=== PATIENT | female | born 1955 | race Caucasian/White ===

== ENCOUNTER → 2020-06-02 | Outpatient (CLI) | payer OTHER, MEDICARE ==
[~2020-06-02] MED LIST: ALEVE220 M1 PO; AZO STANDARD95 MG PO; B COMPLEX1 EACH PO; CHOLINE CITRAT650 MG PO; COENZYME Q10 PO; DHEA 2525 MG PO; DMAE PO; ELDERBERRY EXTRACT PO; GABA PO; HYDROCODON-ACE1 EAC7 PO; KRILL OIL PO; MELATONIN2.5 MG PO; MIRALAX17 GM PO; MS CONTIN15 MG PO; NAC500 MG PO; NEURONTIN 300M300 M2 PO; NONI JUICE PO; ONE-DAILY MULT1 EAC1 PO; SAME200 MG PO; TURMERIC500 M2 PO; VITAMIN A10000 UNI3 PO; VITAMIN D325 MC3 PO; VITAMIN K100 MCG PO; [UNRECOGNIZED DRUG - OTHER]; [UNRECOGNIZED DRUG - OTHER] PO; [UNRECOGNIZED DRUG - OTHER] PO
[2020-06-02 13:35] LABS: HEMATOCRIT 43.6 % (37.0-47.0); MCH 30.2 pg (26.0-34.0); MCHC 32.2 g/dL (28.0-37.0); MCV 93.8 fL (80.0-100.0); RBC 4.64 mil/uL (4.20-5.00); RDW 13.4 % (10.5-14.5)
[2020-06-02 13:37] LABS: URINE BILIRUBIN NEGATIVE (Negative); URINE BLOOD NEGATIVE (Negative); URINE CLARITY CLEAR; URINE COLOR YELLOW; URINE GLUCOSE-RANDOM* NEGATIVE (Negative); URINE KETONES NEGATIVE (Negative); URINE LEUKOCYTES-REFLEX NEGATIVE (Negative); URINE NITRITE-REFLEX NEGATIVE (Negative); URINE PROTEIN (DIPSTICK) NEGATIVE (Negative); URINE SPECIFIC GRAVITY >= 1.030 (1.005-1.035); URINE UROBILINOGEN 0.2 E.U./dl (0.2-1.0)
[2020-06-02 13:49] LABS: CALCIUM 9.5 mg/dL (8.5-10.1); CREATININE 0.6 mg/dL (0.6-1.0); POTASSIUM 4.3 mmol/L (3.5-5.1); PROTIME 10.3 Seconds (9.3-11.4)
== END ==
LOC: LAB 09:00
PROVIDERS: ATTEND Orthopaedic Surgery
DX: Z01.818 Encounter for other preprocedural examination (principal); M17.12 Unilateral primary osteoarthritis, left knee; Z96.652 Presence of left artificial knee joint

== ENCOUNTER → 2020-06-13 | Outpatient (CLI) | payer OTHER, MEDICARE ==
[~2020-06-13] MED LIST changes: -HYDROCODON-ACE1 EAC7 PO; -MIRALAX17 GM PO; -MS CONTIN15 MG PO; -NEURONTIN 300M300 M2 PO
== END ==
LOC: LAB 08:28
PROVIDERS: ATTEND Orthopaedic Surgery
DX: Z01.812 Encounter for preprocedural laboratory examination (principal); Z20.828 Contact with and (suspected) exposure to other viral communicable diseases

== ENCOUNTER 2020-06-15 10:52 | Observation (INO) | payer OTHER, MEDICARE ==
[2020-06-02 13:35] LABS: HEMATOCRIT 43.6 % (37.0-47.0); MCH 30.2 pg (26.0-34.0); MCHC 32.2 g/dL (28.0-37.0); MCV 93.8 fL (80.0-100.0); RBC 4.64 mil/uL (4.20-5.00); RDW 13.4 % (10.5-14.5)
[2020-06-02 13:37] LABS: URINE BILIRUBIN NEGATIVE (Negative); URINE BLOOD NEGATIVE (Negative); URINE CLARITY CLEAR; URINE COLOR YELLOW; URINE GLUCOSE-RANDOM* NEGATIVE (Negative); URINE KETONES NEGATIVE (Negative); URINE LEUKOCYTES-REFLEX NEGATIVE (Negative); URINE NITRITE-REFLEX NEGATIVE (Negative); URINE PROTEIN (DIPSTICK) NEGATIVE (Negative); URINE SPECIFIC GRAVITY >= 1.030 (1.005-1.035); URINE UROBILINOGEN 0.2 E.U./dl (0.2-1.0)
[2020-06-02 13:49] LABS: CALCIUM 9.5 mg/dL (8.5-10.1); CREATININE 0.6 mg/dL (0.6-1.0); POTASSIUM 4.3 mmol/L (3.5-5.1); PROTIME 10.3 Seconds (9.3-11.4)
[~2020-06-15] VITALS: Ht 177.8 cm; Wt 67.1 kg
[2020-06-15 12:05] VITALS: BP 134/87
[2020-06-15 17:30] VITALS: BP 112/71
--- NOTE | 2020-06-15 18:13 | NUR ---
Pt transferred from recovery room approx 1545. Denies pain. Dressing c/d/i. Polar care in place. IVF infusing. 2L O2. Pt still drowsy. Possibl d/c to home tomorrow if physical therapy clears pt. Family at bedside. Fall precautions in place. Call light within reach. Will continue to monitor.
[2020-06-15 19:45] VITALS: BP 102/63
--- NOTE | 2020-06-16 04:24 | NUR ---
ASSUMED CARE OF PT AT 1900. PT IS A/O X4 AND IS UP WITH ASSISTANCE. PT C/O PAIN TO LEFT KNEE. PRN PAIN MEDICATION GIVEN DIRECTED. AT THIS TIME PT IS LYING IN HER BED AND APPEARS TO BE SLEEPING. POLAR PACK IN PLACE AND RECENTLY REFILLED. ROJELIO DRSG C/D/I. SCD'S AND FALL PRECAUTIONS IN PLACE. WILL CONTINUE TO MONITOR.
[2020-06-16 05:58] LABS: HEMATOCRIT 32.9 % (37.0-47.0); HEMOGLOBIN 10.7 gm/dL (12.0-15.0); MCH 30.7 pg (26.0-34.0); MCHC 32.6 g/dL (28.0-37.0); MCV 94.1 fL (80.0-100.0); RBC 3.5 mil/uL (4.20-5.00); RDW 13.2 % (10.5-14.5); WBC 11.3 thou/uL (4.0-11.0)
[2020-06-16 07:59] VITALS: BP 102/63
[2020-06-16 08:14] VITALS: BP 93/59
[2020-06-16] MEDS ORDERED: HYDROCODON-ACE1 EAC7 PO (10:07)
[2020-06-16] MEDS ORDERED: MS CONTIN15 MG PO (10:07)
[2020-06-16] MEDS ORDERED: NEURONTIN 300M300 M2 PO (10:08)
--- NOTE | 2020-06-16 10:13 | O ---
[facility] [place] [address] OPERATIVE REPORT Name: REBECCA MENENDEZ Room #: 438-P [facility] M.R.#: [id number] Admission: 06/15/20 Attend Phys: Greyson Elias MD Discharge: Date of : 51 Report #: [id number] THIS REPORT FOR: cc: FAM - Family physician unknown FAM - Family physician unknown Greyson Elias MD ~ DATE OF SERVICE: 06/15/2020 PREOPERATIVE DIAGNOSIS: Left knee osteoarthritis. POSTOPERATIVE DIAGNOSIS: Left knee osteoarthritis. PROCEDURE: Left total knee arthroplasty using Navio robotic itinerant teacher assistant. SURGEON: Greyson Elias M.D. TYPESETTER PERFORATOR OPERATOR: Yamile Henderson PA-C. INDICATIONS FOR TYPESETTER PERFORATOR OPERATOR: Throughout the case, extensive retraction and manipulation of the knee was required. This was afforded to me by my itinerant teacher assistant. ANESTHESIA: LMA with adductor canal block. IMPLANTS: Tavares and Nephew size 5 Journey II BCS Oxinium femur, a size 3 tibia, a size 11 polyethylene and size 29 patella. TOURNIQUET TIME: 52 minutes. ESTIMATED BLOOD LOSS: Less than 25 mL. COMPLICATIONS: None. SPECIMENS: None. CONDITION UPON LEAVING THE OPERATING ROOM: Stable. INDICATIONS FOR PROCEDURE: The patient is a 64-year-old female with left knee osteoarthritis. She had failed conservative measures for this and after discussion with her, she elected for left total knee arthroplasty. DESCRIPTION OF PROCEDURE: Risks, benefits, alternatives, complications were discussed in detail with the patient including but not limited to risk of anesthesia, risk of damage to nerves, arteries, blood vessels, risk for infection, bleeding, risk for continued knee pain, need for reoperation. Informed consent was obtained from the patient. Left knee was appropriately [address] [address] OPERATIVE REPORT Name: REBECCA MENENDEZ Room #: 438-P [facility] MKirstenR.#: [id number] Admission: 06/15/20 Attend Phys: Greyson Elias MD Discharge: Date of : 51 Report #: [id number] marked in the preoperative holding area. IV Ancef was given for preoperative antibiotics. She was brought to the operating room and placed in the supine position on operating room table. LMA anesthesia was induced without complication. Tourniquet was placed on the left thigh. Left lower extremity was prepped and draped in normal sterile fashion. Timeout was performed properly identifying the patient and procedure as well as the instrumentation and implants. All in the operating room were in agreement. Standard midline approach to the knee was made with 10 blade through the skin. Dissection was taken down sharply to the fascia and deep flaps were developed medially and laterally. Fresh 10 blade was used to make a medial parapatellar arthrotomy and the knee was inspected. There was severe medial compartment with moderate patellofemoral compartment osteoarthritis. ACL and PCL were removed sharply. Reference pins were placed in the femur and the tibia and the knee was then digitally mapped using the Sayah robotic system. Intraoperative plan was made and we sized the size 5 femur with a size 3 tibia and a 10 spacer. After acceptance of the intraoperative plan, the distal femoral cut was made with a Navio bur. Distal femoral cutting block was pinned in place and chamfer cuts were made. Attention was turned to the tibia. Remainder of the menisci removed with Bovie cautery. Tibial resection guide was pinned in place using the Navio for placement and tibial resection was made. Flexion and extension gaps were then checked and found to have good balance both medially and laterally in flexion and extension. Tibia was sized, found to be a size 3. A size 3 tibial trial was placed, pinned and punched. A size 5 femoral trial was placed and box cut was made. This was then trialed with a size 10 and then a size 11 polyethylene. The size 11 polyethylene demonstrated 1-2 millimeter of laxity medially and laterally throughout range of motion of the knee, both digitally as well as manually. A 9 mm of bone was resected from the posterior surface of the patella and a size 29 patellar trial button was placed. Knee was taken through range of motion, found to be stable, found to have good patellar tracking. Trial components were removed. Bony ends were thoroughly irrigated with normal saline. A final size 3 tibia, size 5 Journey II BCS Oxinium femur and a size 29 patella were cemented in place using standard cementation techniques. While the cement cured, a periarticular injection consisting of morphine, ropivacaine, epinephrine and Toradol was placed around the knee joint capsule. After the cement cured, tourniquet was deflated. Hemostasis was obtained with Bovie cautery. Final size 11 polyethylene was placed. A gram of vancomycin was placed deep in the joint. Fascia was closed with 0 Vicryl, skin was closed with 2-0 Vicryl, 3-0 Monocryl, Dermabond and a ROJELIO dressing was applied. The patient tolerated this procedure well and went to the recovery room under care of anesthesia postoperatively. <ELECTRONICALLY SIGNED> By: Greyson Elias MD 06/16/20 1013 1655 1751 Greyson Elias MD /nt
[2020-06-16 10:19] VITALS: BP 102/63
--- NOTE | 2020-06-16 10:21 | NUR ---
ASSESSMENT: CM REVIEWED CHART AND SPOKE WITH PT. PT IS ALERT AND ORIENTED X4. PT IS S/P LEFT KNEE REPLACEMENT. PT REPORTS LIVING AT HOME WITH HER . SHE REPORTS HER DAUGHTER IS GOING TO BE STAYING WITH HER FOR A FEW DAYS WELL. PT REPORTS SHE IS NORMALLY INDEPENDENT WITH ADLS AND AMBULATION AND IS NEEDING A WALKER FOR HOME. PT REPORTS NO PREFERENCE OF [email or web address]. CM NOTIFIED [employer] AND THEY HAVE DELIVERED A WALKER TO PATIENT. PT REPORTS HAVING OUTPATIENT THERAPY SET UP. PT REPORTS NO FURTHER NEEDS FROM CM. PT WORKED WITH THERAPY AND IS DISCHARGING TODAY.
[2020-06-16 10:56] VITALS: BP 102/63
--- NOTE | 2020-06-16 11:10 | NUR ---
DISCHARGE PAPERS REVIEWED SIGNED AND COPY IN CHART. IV ACSESS DCD. ORTHO FOLDER GIVEN TO PATIENT. PICCO DRESSING IN PLACE. POLAR PACK AND WALKER SENT WITH PATIENT.
[2020-06-16 11:56] VITALS: BP 102/63
== END 2020-06-16 11:57 | disposition home or self-care (01) ==
LOC: OR 10:52 → TBA 10:52 → OR 12:29 → 4S 15:52
PROVIDERS: ADMIT Orthopaedic Surgery; ATTEND Orthopaedic Surgery
DX: M17.12 Unilateral primary osteoarthritis, left knee (principal); Z79.899 Other long term (current) drug therapy
CPT/HCPCS: 27447; S2900; 50010; 50101; 50415; 50954; 51130; 51225; 51320; 53000; 53078; 53365; 54118; 56527; 56528; 57095; 57103; 57110; 57127; 57179; 62110; 62900; 70005

== ENCOUNTER 2020-06-16 23:35 | Inpatient (IN) | payer OTHER, MEDICARE ==
[~2020-06-16] VITALS: Ht 177.8 cm; Wt 67.1 kg
--- NOTE | ~2020-06-16 | EMS ---
[address] [address] EMS Patient Care Report Name: REBECCA MENENDEZ Room #: 442-P ADM IN M.R.#: [id number] Admission: 06/17/20 Attend Phys: Trent Schwartz MD Discharge: Date of : 51 Report #: [id number] THIS REPORT FOR: //name// Report Transmitted: 06/17/2020 06:15 EMS Care Summary [facility] MED-ACT Incident [id number] @ 06/16/2020 22:56 Incident Location [address] [place] [address] Patient REBECCA RANKIN Female, 64 Years 1955 Patient Address [address] [place] [address] Patient History None Reported, Patient Allergies No known allergies, Patient Medications Aspirin, Hydrocodone, Morphine, Cephalexin, Gabapentin, Zofran, Chief Complaint Addominal pain Disposition Transported No Lights/[place] Reason Convulsions/Seizure Transported To [facility] Narrative [id number] arrived on scene to find a female lying on the couch. Pt was alert and oriented. Family stated that pt had an episode where "she passed out, stopped breathing, and sounded like she was trying to throw up." Family stated that the episode lasted approx. 10 sec. Pt complained of abdominal pain that has [address] [address] EMS Patient Care Report Name: REBECCA MENENDEZ Room #: 442-P ADM IN ..#: [id number] Admission: 06/17/20 Attend Phys: Trent Schwartz MD Discharge: Date of : 51 Report #: [id number] increased since she ate dinner that night. Pt had a knee replacement on 06/15 and had not had a bowel movement since 06/14. Pt was using hydrocodone and morphine at home for pain. Pt's abdomen was distended and tender to touch. Pt states that she has had her "stomach pumped" multiple times from similar experiences. Pt was placed on the monitor and glucose obtained. Pt decided it would be best to go to the hospital to be evaluated. Pt was moved to the cot and out to the ambulance. In the ambulance pt was placed on the monitor and a 12 lead obtained. Pt was then transported to the hospital. At the hospital care was transferred to ER staff. Initial Vitals @23:11P: 93,R: 18,SpO2: 96, @23:21P: 95,R: 14,BP: 128/73,SpO2: 96, @23:04P: 93,R: 18,BP: 125/74,Pain: 8/10,GCS: 15,Temp: 98F,Glucose: 159,SpO2: 93,Revised Trauma: 12, @23:29P: 85,R: 18,SpO2: 95, Assessments @23:04MENTAL:Person Oriented,Time Oriented,Place Oriented,Event Oriented,SKIN:HEENT:LUNG SOUNDS:Left Upper: Distension,Right Upper: Distension,Right Lower: Distension,Left Lower: Distension,ABDOMEN:Left Upper: Distension,Right Upper: Distension,Right Lower: Distension,Left Lower: Distension,PELVIS//GI:EXTREMITIES:PULSE:NEURO: Impression Abdominal Pain Procedures @23:04Surgical Mask on PatientResponse: Unchanged@23:06ALS AssessmentResponse: UnchangedSucceeded@23:2812-Lead ECGResponse: UnchangedSucceeded@23:2912-Lead ECGResponse: UnchangedSucceeded Timeline 22:54,Call Received 22:54,Psap Call 22:56,Dispatched 22:58,En Route 23:00,On Scene 23:02,At Patient 23:04,Surgical Mask on Patient,Response: Unchanged 23:04,BP: 125/74 M,PULSE: 93,RR: 18 R,SPO2: 93 Ox,ETCO2: ,B,PAIN: 8,GCS: 15, 23:06,ALS Assessment,Response: UnchangedSucceeded, 23:11,BP: / M,PULSE: 93,RR: 18 R,SPO2: 96 Ox,ETCO2: ,BG: ,PAIN: ,GCS: , 23:19,Depart Scene 23:21,BP: 128/73 M,PULSE: 95,RR: 14 R,SPO2: 96 Ox,ETCO2: ,BG: ,PAIN: ,GCS: , [address] [address] EMS Patient Care Report Name: REBECCA MENENDEZ Room #: 442-P [facility] IN M.R.#: [id number] Admission: 06/17/20 Attend Phys: Trent Schwartz MD Discharge: Date of : 51 Report #: [id number] 23:28,12-Lead ECG,Response: UnchangedSucceeded, 23:29,12-Lead ECG,Response: UnchangedSucceeded, 23:29,BP: / M,PULSE: 85,RR: 18 R,SPO2: 95 Ox,ETCO2: ,BG: ,PAIN: ,GCS: , 23:31,At Destination 23:40,Call Closed Disclaimer v1.1 Copyright 2020 [employer] This EMS Care Summary contains data elements from the applicable legal record (which may be displayed differently). It is designed to provide pertinent information for the following purposes: continuity of care, clinical quality, and state data reporting. The complete legal record is available to ED staff and administrators of the receiving hospital in [facility]'s Patient Tracker. All data is provided "as is."
[~2020-06-16 23:35] MED LIST changes: +HYDROCODON-ACE1 EAC7 PO; +MS CONTIN15 MG PO; +NEURONTIN 300M300 M2 PO
[2020-06-16 23:36] VITALS: BP 118/66
[2020-06-17 00:56] LABS: ABSOLUTE NEUTROPHILS 8.3 thou/uL (1.4-8.2); BASOPHILS 0.2 % (0.0-2.0); EOSINOPHILS 0.1 % (0.0-3.0); HEMATOCRIT 32.1 % (37.0-47.0); HEMOGLOBIN 10.7 gm/dL (12.0-15.0); LYMPHOCYTES 12.7 % (24.0-44.0); MCH 31.1 pg (26.0-34.0); MCHC 33.4 g/dL (28.0-37.0); MCV 93.3 fL (80.0-100.0); MONOCYTES 10.8 % (1.0-8.0); PLATELET COUNT 209 thou/uL (150-400); POLYS 76.2 % (36.0-66.0); RBC 3.45 mil/uL (4.20-5.00); RDW 13.7 % (10.5-14.5); WBC 10.9 thou/uL (4.0-11.0)
[2020-06-17 01:08] LABS: ALBUMIN 3.4 g/dL (3.4-5.0); CALCIUM 9.4 mg/dL (8.5-10.1); CREATININE 0.7 mg/dL (0.6-1.0); TOTAL BILIRUBIN 0.5 mg/dL (0.2-1.0); TOTAL PROTEIN 6.3 g/dL (6.4-8.2)
[2020-06-17 01:09] LABS: POTASSIUM 2.8 mmol/L (3.5-5.1)
[2020-06-17 03:19] VITALS: BP 125/80
[2020-06-17 03:23] VITALS: BP 125/80
[2020-06-17 04:09] VITALS: BP 125/80
[2020-06-17 04:36] VITALS: BP 117/84
--- NOTE | 2020-06-17 05:18 | NUR ---
PT ADMITTED TO THE UNIT AT APPROXIMATELY 0430. PT IS A/O X4 AND IS UP WITH ASSISTANCE X1 TO THE BSC OR WILL USE A BEDPAN DEPENDING ON LEVEL OF PAIN AND COMFORT. PT IS HOOKED UP TO NG TUBE AND LOW INTERMITTENT SUCTION CURRENTLY DRAINING DARK BRWON LIQUID. LEFT KNEE AQUACEL DRSG IS INTACT BUT DRAINING RED DRAINAGE. REINFORCED WITH ABD. PT C/O PAIN AND NAUSEA AT THIS TIME. AWAITING ORDERS. WILL CONTINUE TO MONITOR.
[2020-06-17 07:50] VITALS: BP 127/70
[2020-06-17 09:45] LABS: CALCIUM 8.8 mg/dL (8.5-10.1); CREATININE 0.5 mg/dL (0.6-1.0); MAGNESIUM 2.2 mg/dL (1.8-2.4)
[2020-06-17 09:56] LABS: POTASSIUM 4.3 mmol/L (3.5-5.1)
--- NOTE | 2020-06-17 15:20 | EKG ---
[place] [address] [facility] [place] [address] ELECTROCARDIOGRAM REPORT Name: REBECCA MENENDEZ Room #: 442-P ADM IN M.R.#: [id number] Admission: 06/17/20 Attend Phys: Trent Schwartz MD Discharge: Date of : 51 Report #: [id number] [facility] ED Test Date: 2020-06-17 Test Time: 00:20:57 Pat Name: REBECCA BAUER Department: Room: 442 Gender: F Slip Cover Cutter: LONNIE : 1955 Requested By: Jon Gonzalez Order Number: [id number] MD: Memo Howard Measurements Intervals [place] Rate: 91 P: 63 AR: 182 QRS: 57 QRSD: 68 T: 57 QT: 427 QTc: 526 Interpretive Statements Sinus rhythm Borderline T abnormalities, anterior leads Prolonged QT interval No previous ECG available for comparison Electronically Signed On 06-17-2020 15:19:51 DEMAND PLANNING MANAGER by Memo Howard [email or web address] <ELECTRONICALLY SIGNED> By: Memo Howard MD, [facility] 06/17/20 1519 0020 0020 Memo Howard MD, FACC /EPI
[2020-06-17 16:50] VITALS: BP 131/78
[2020-06-18 00:15] VITALS: BP 124/74
--- NOTE | 2020-06-18 04:02 | NUR ---
ASSUMED PT CARE FROM ROHAN (DAY RN). PT IS A&OX4. PT HAS COMPLAINTS OF PAIN TO HER LEFT LEG AND A HEADACHE. PT STATES THAT HER PAIN IS NOT MANAGEABLE. PT TOLD ME THAT SHE HAS PAIN MEDICATION IN HER BAG AND THAT SHE CAN TAKE THEM IF WE DON'T GET HER SOMETHING "STRONGER". I SPOKE WITH YANET AND SHE ORDERED A ONE TIME DOSE OF 30 MG TORADOL FOR THE HEADACHE. I COUNTED THE NARCOTICS WITH THE PT AND SENT THEM DOWN TO PHARMACY. PT STATES THAT IT IS NOT HELPING HER HEADACHE. I WAS TOLD BY ROHAN IN REPORT THAT THE PT COULD HAVE ICE CHIPS BUT THAT SHE IS NPO. I EXPLAINED TO THE PT THAT NPO IS NOTHING BY MOUTH AND SHE STATED THAT DR. NORRIS IS AWARE AND APPROVES OF HER HAVING THE ICE CHIPS. PT STATES THAT SHE NEEDS A CUP OF ICE CHIPS EVERY 45 MINUTES. PT ALSO LIKE ICE PACKS AROUND HER NECK AND TO REFILL THEM ONCE AN HOUR WELL. PT HAS A DRESSING ON HER LEFT KNEE WHICH IS D/I. AMADEO HOSE AND POLAR PACK IS IN PLACE. WILL CONTINUE TO MONITOR.
[2020-06-18 04:54] LABS: ALBUMIN 2.7 g/dL (3.4-5.0); CALCIUM 8.7 mg/dL (8.5-10.1); CREATININE 0.4 mg/dL (0.6-1.0); MAGNESIUM 1.8 mg/dL (1.8-2.4)
[2020-06-18 08:15] VITALS: BP 124/65
--- NOTE | 2020-06-18 12:18 | NUR ---
PT WORKED WITH THERAPY UP IN BEDSIDE CHAIR. NG TUBE DCD AND CLEAR LIQUID DIET STARTED. TO BRING UP BROTH PATIENT ONLY EATS CERTAIN FOOD.
[2020-06-18 15:52] VITALS: BP 111/69
--- NOTE | 2020-06-18 17:05 | NUR ---
ASSUMED CARE OF PATIENT AT 0645 THIS AM HAS WORKED WITH THERAPY UP IN BEDSIDE CHAIR. NG TUBE DCD AND STARTED ON CLEAR LIQUID DIET PT REQUEST FOR [facility] CALLED AND STATED NO THAT PATIENT DID NOT NEED, HAS BEEN NPO. KCL XS 1 BAG GIVEN FLUIDS ORDERED. KUB ORDERED. PT GIVEN MED FOR MIGRAINE HERE TO BRING FOOD PT FOLLOWS SPECIAL DIET.
--- NOTE | 2020-06-18 19:39 | NUR ---
UA COLLECTED FROM CHAMBERLAIN CATH SPECIMEN TAKEN TO LAB AT THIS TIME WAS ORDERED INER AND WAS NOT COLLECTED STILL SHOWS ACTIVE ORDER
[2020-06-18 19:55] VITALS: BP 118/69
[2020-06-18 20:20] LABS: URINE BILIRUBIN NEGATIVE (Negative); URINE BLOOD 2+ (Negative); URINE CLARITY SL CLOUDY; URINE COLOR YELLOW; URINE GLUCOSE-RANDOM* NEGATIVE (Negative); URINE KETONES 2+ (Negative); URINE LEUKOCYTES-REFLEX TRACE (Negative); URINE NITRITE-REFLEX NEGATIVE (Negative); URINE PROTEIN (DIPSTICK) TRACE (Negative); URINE UROBILINOGEN 0.2 E.U./dl (0.2-1.0)
[2020-06-18 20:35] LABS: AMORPHOUS PHOSPHATES Moderate /LPF (None Seen); BACTERIA-REFLEX None Seen /HPF (None Seen); CASTS None Seen /LPF (None Seen); CRYSTALS None Seen /LPF (None Seen); MUCUS 4-6 Moderate strn/LPF (None Seen); SQUAMOUS None Seen /LPF (0-3); TRANSITIONAL EPITHEL CELL 0-3 Few /LPF (None Seen); URINE RBC 3-10 Few /HPF (0-2); URINE WBC-REFLEX 0-5 Rare /HPF (0-5)
[2020-06-19 04:04] VITALS: BP 128/61
[2020-06-19 04:57] LABS: ALBUMIN 2.5 g/dL (3.4-5.0); CALCIUM 8.2 mg/dL (8.5-10.1); CREATININE 0.5 mg/dL (0.6-1.0); MAGNESIUM 1.7 mg/dL (1.8-2.4); PHOSPHORUS 2.6 mg/dL (2.6-4.7); POTASSIUM 3.3 mmol/L (3.5-5.1)
--- NOTE | 2020-06-19 05:18 | NUR ---
ASSESSED AT START OF SHIFT. PT DENIES N/V. NANCIE CLEAR LIQUID DIET. IV INTACT AND FLUIDS INFUSING. PT C/O MIGRAINE DURING THE SHIFT. 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 ROJELIO DRESSING, ICE PACK AND SCD'S IN PLACE. FALL PRECAUTION MAINTAINED. WILL CONT TO MONITOR TILL EOS.
[2020-06-19 07:35] VITALS: BP 127/74
[2020-06-19] MEDS ORDERED: MIRALAX17 GM PO (15:38)
[2020-06-19 15:50] VITALS: BP 82/52
--- NOTE | 2020-06-19 15:58 | NUR ---
PATIENT UP IN BEDSIDE CHAIR, ALERT XS 4 CHAMBERLAIN CATH DCD. PT REGULAR DIET HAD BM DR NORRIS HERE WAS TOLD PATIENT GOING HOME. OKAY WITH THAT. DR BARAJAS TO PUT IN DC ORDERS. WILL RETRIEVE HER AT HOME MEDS FROM IN HOUSE PHARMACY. PT TO WASH UP AND THEN IV ACSESS TO BE DCD.
[2020-06-19 16:02] VITALS: BP 127/74
--- NOTE | 2020-06-19 16:57 | NUR ---
DISCHARGE PAPERS REVIEWED SIGNED AND COPY IN CHART. IV ACSESS DCD, MEDS RETRIEVED FROM IN HOUSE PHARMACY. PT TOOK SPONGE BATH. ALL BELONGINGS PACKED TO BE SENT WITH PATIENT.
[2020-06-19 17:58] VITALS: BP 127/74
== END 2020-06-19 18:03 | disposition home or self-care (01) | DRG 388 ==
LOC: ER 23:35 → EROBS 06-17 03:09 → 4S 06-17 03:09
PROVIDERS: Emergency Medicine; Hospitalist; Nurse Practitioner Family; ADMIT Internal Medicine; ATTEND Internal Medicine
PROC: 0D9670Z Drainage of Stomach with Drainage Device, Via Natural or Artificial Opening (ICD-10-PCS; principal; 2020-06-17)
DX: K56.600 Partial intestinal obstruction, unspecified as to cause (principal); E43 Unspecified severe protein-calorie malnutrition; E87.6 Hypokalemia; K56.7 Ileus, unspecified; Z96.652 Presence of left artificial knee joint; Z85.3 Personal history of malignant neoplasm of breast; Z90.13 Acquired absence of bilateral breasts and nipples; Z98.891 History of uterine scar from previous surgery; Z79.899 Other long term (current) drug therapy; Z88.5 Allergy status to narcotic agent; Z88.8 Allergy status to other drugs, medicaments and biological substances; Z91.018 Allergy to other foods
CPT/HCPCS: 10195